=== PATIENT | female | born 1950 | race Caucasian/White ===

== ENCOUNTER 2017-03-04 14:12 | Emergency (ER) | payer MEDICARE ==
[2017-03-04 14:29] VITALS: BP 212/98
--- NOTE | 2017-03-04 15:16 | UC ---
Dizzy HPI HPI Summary: The patient comes in today for: 1. Dizziness (Vertigo and imbalance--no syncope) and high blood pressure. Onset: Dizziness today. Palliative/provocative: Laying still helps. Quality: Vertigo and imbalance Region: [employer]. Severity: No pain: 0/10 Time: Comes and goes. Associated symptoms: Blood pressures: She uses an [employer] wrist blood pressure machine: More recently (last 3 days) 130/80. She has 'whitecoat hypertension.' Her readings at home were 156 to 174/98-108. Previous treatment: Amlodipine, Anxiety: She states that she suffers this. Dizziness: She has slight movement of objects in her view back and forth with head movements. This lasts only a short while. No focal neurologic complaints. * - History Of Current Complaint Chief Complaint: UCDizziness Stated Complaint: DIZZY,HIGH BP Time Seen by Provider: 03/04/17 15:03 Hx Obtained From: Patient - Allergies/Home Medications Allergies/Adverse Reactions: Allergies Allergy/AdvReac Type Severity Reaction Status Date / Time Cefaclor [From [facility]] Allergy Rash Verified 03/04/17 14:29 Home Medications: Home Medications Calcium Carbonate-Vitamin D W/ [Caltrate 600+D Plus Menan 600-800 mg-Unit] 1 tab PO DAILY 03/04/17 [History Confirmed 03/04/17] Esomeprazole Magnesium [Nexium] 40 mg PO DAILY 03/04/17 [History Confirmed 03/04] Multiple Vitamin [Multi Vitamin] 1 tab PO DAILY 03/04/17 [History Confirmed 12/20] Pravastatin Sodium [Pravachol] 10 mg PO BEDTIME 03/04/17 [History Confirmed 12/20] hydrOXYzine HCL TAB* [Atarax 10 MG TAB*] 10 mg PO DAILY PRN 03/04/17 [History Confirmed 03/04/17] PMH/Surg Hx/FS Hx/Imm Hx Endocrine History Of: Reports: Thyroid Disease - hypothyroid, Hypothyroidism, Dyslipidemia Denies: Diabetes, Hyperthyroidism Cardiovascular History Of: Reports: Cardiac Disorders - Mitral valve stenosis-- sees cardiology., Hypertension - ON MEDS Denies: Pacemaker/ICD, Myocardial Infarction, Congestive Heart Failure, Atrial Fibrillation, Deep Vein Thrombosis, Bleeding Disorders Respiratory History Of: Denies: COPD, Asthma, Bronchitis, Pneumonia, Pulmonary Embolism GI/ History Of: Reports: Gastroesophageal Reflux Denies: Ulcer, Gastrointestinal Bleed, Gall Bladder Disease, Kidney Stones, Diverticulitis, Renal Disease, Urosepsis Neurological History Of: Denies: TIA, CVA, Dementia, Seizures, Migraine Psychological History Of: Reports: Anxiety Denies: Depression, Bipolar Disorder, Schizophrenia, Post Traumatic Stress Disorder Cancer History Of: Denies: Lung Cancer, Colorectal Cancer, Breast Cancer, Prostate Cancer, Cervical Cancer Other History Of: Negative For: HIV, Hepatitis B, Hepatitis C, Anticoagulant Therapy - Surgical History Surgical History: Yes Surgery Procedure, Year, and Place: carpal tunnel. L ovary and fallopian tube removed. R breast bx - Family History Known Family History: Positive: Cardiac Disease, Hypertension, Other - High cholestrerol - Social History Occupation: Retired Alcohol Use: Occasionally Substance Use Type: None Smoking Status (MU): Former Smoker Review of Systems Constitutional: Negative Skin: Negative Eyes: Negative ENT: Negative Respiratory: Negative Cardiovascular: Negative Gastrointestinal: Negative Genitourinary: Negative All Other Systems Reviewed And Are Negative: Yes Physical Exam Triage Information Reviewed: Yes Appearance: Well-Appearing, No Pain Distress, Well-Nourished Vital Signs: Initial Vital Signs Temp 98.4 F 03/04/17 14:23 Pulse 83 03/04/17 14:23 Resp 16 03/04/17 14:23 BP 212/98 03/04/17 14:23 Pulse Ox 98 03/04/17 14:23 My blood pressure readings sitting and with a regular cuff: Left arm: 170/90 Right arm: 180/100 Vital Signs Reviewed: Yes Eyes: Positive: Conjunctiva Clear. Negative: Discharge ENT: Positive: Hearing grossly normal. Negative: Pharyngeal erythema, Nasal congestion, Nasal drainage, TM bulging, TM dull, TM red, Tonsillar swelling, Tonsillar exudate Dental: Negative: Gross Decay/Caries @, Dental Fracture @ Neck: Positive: Supple, Nontender, No Lymphadenopathy, Other: - No bruits Respiratory: Positive: Chest non-tender, Lungs clear, No respiratory distress, No accessory muscle use. Negative: Crackles, Wheezing Cardiovascular: Positive: RRR, No Murmur Abdomen Description: Positive: Nontender, No Organomegaly, Soft, Other: - No bruits. Negative: Distended, Hernia @ Musculoskeletal: Positive: Strength Intact, ROM Intact, No Edema Neurological: Positive: Alert, Muscle Tone Normal Psychological: Positive: Age Appropriate Behavior, Consolable Skin: Negative: rashes, breakdown Diagnostics - Laboratory Diagnostic Studies Completed/Ordered: EKG: Rate: 71. Rhythm: Sinus. Ectopy: None. Acute changes: None. Dizzy Course/Dx - Differential Dx/Diagnosis Provider Diagnoses: Hypertension, uncontrolled. Vertigo Discharge - Discharge Plan Condition: Stable Disposition: HOME Patient Education Materials: Vertigo (ED), Hypertension (ED) Referrals: Maricel Levi MD [Primary Care Provider] - 3 Days (Please see your primary care provider after several days to see how well you are doing. If you get worse, please go to the ER. )
== END 2017-03-04 15:46 | disposition home or self-care (01) ==
LOC: UCEAST 14:12
DX: I10 Essential (primary) hypertension (principal); R42 Dizziness and giddiness; E03.9 Hypothyroidism, unspecified; E78.5 Hyperlipidemia, unspecified; I34.2 Nonrheumatic mitral (valve) stenosis; K21.9 Gastro-esophageal reflux disease without esophagitis; F41.9 Anxiety disorder, unspecified; Z88.1 Allergy status to other antibiotic agents; Z87.891 Personal history of nicotine dependence
CPT/HCPCS: 93005; 99212; G0463